=== PATIENT | female | born 1995 | race Caucasian/White ===

== ENCOUNTER → 2019-11-16 12:11 | Outpatient (CLI) | payer MEDICAID, SELFPAY ==
[2019-11-16 12:59] LABS: Basophils % 0.4 % (0.1-2.0); Eosinophils # 0.3 K/mm3 (0.0-0.4); Eosinophils % 3.1 % (0.1-12.0); Hematocrit 38.5 % (37.0-47.0); Hemoglobin 13.8 g/dL (12.2-16.2); Lymphocytes # 2.5 K/mm3 (0.7-4.5); Lymphocytes % 25.5 % (10-50); Mean Corpuscular HGB Conc 35.8 g/dL (31.8-35.4); Mean Corpuscular Hemoglobin 31.7 pg (27.0-31.2); Mean Corpuscular Volume 88.5 fl (81-99); Mean Platelet Volume 8.6 fl (7.4-10.4); Monocytes # 0.4 K/mm3 (0.1-1.0); Monocytes % 4.5 % (1.7-9.3); Neutrophils # 6.5 K/mm3 (1.8-7.8); Neutrophils % 66.4 % (37.0-80.0); Platelet Count 184 K/mm3 (142-424); Red Blood Count 4.35 M/mm3 (4.20-5.40); Red Cell Distribution Width 12.8 % (11.5-17.5); White Blood Count 9.7 K/mm3 (4.8-10.8)
[2019-11-17 18:20] LABS: Rapid Plasma Reagin Ab Titer Non Reactive (NonRea<1:1)
[2019-11-17 18:21] LABS: HIV Screen 4th Generation wRfx Non Reactive (Non Reactive); Hepatitis B Surface Antigen Negative (Negative); Hepatitis C Antibody <0.1 s/co ratio (0.0-0.9); Rubella Antibodies, IgG <0.90 index (Immune >0.99)
== END ==
PROVIDERS: PCP Obstetrics & Gynecology; Visit Provider Obstetrics & Gynecology
DX: Z34.90 Encounter for supervision of normal pregnancy, unspecified, unspecified trimester (principal)
CPT/HCPCS: 36415; 85025; 86592; 86703; 86762; 86850; 87340; 87380; G0432

== ENCOUNTER → 2019-11-16 12:56 | Outpatient (CLI) | payer MEDICAID, SELFPAY ==
--- NOTE | 2019-11-16 12:59 | US_ITS ---
PROCEDURE: US OB >= 14 WEEKS FETUS CLINICAL INDICATION: Evaluate dates COMPARISON: No exams were available for comparison FINDINGS: There is a live IUP present which is in breech presentation. Average ultrasound age is 14 weeks 1 day. BPD 14 weeks 3 days, OFD 14 weeks 1 day, HC 14 weeks 1 day, AC 14 weeks 0 day, FL 14 weeks 0 day. Heart tones are 149 beats per minute. Placenta is posterior. Average appearing amount of amniotic fluid. This does not constitute an anatomy exam. The cervix is closed and measures 3.7 cm transabdominal. IMPRESSION: Live IUP at 14 weeks 1 day. Estimated due date by Ultrasound is 05/15/2020 Dictated by: Huang Rainey MD 11/16/2019 16:19 Huang Rainey MD in OV 11/16/2019 16:19
== END ==
PROVIDERS: PCP Dermatology Dermatopathology; Visit Provider Obstetrics & Gynecology
DX: Z34.90 Encounter for supervision of normal pregnancy, unspecified, unspecified trimester (principal)
CPT/HCPCS: 76805